=== PATIENT | female | born 1965 | race Caucasian/White ===

== ENCOUNTER 2020-01-30 08:31 | Outpatient (CLI) | payer BC, SELFPAY ==
--- NOTE | 2020-01-30 08:45 | US_ITS ---
WS: [id number] Pelvic ultrasound, 01/30/2020 Clinical Data: ABDOMINAL PAIN Comparison: None. Findings: The uterus has been removed. The left ovary measures 2.2 cm x 1.0 cm x 1.2 cm with no cysts or masses. The right ovary measures 2.3 cm x 1.4 cm x 1.8 cm with no cysts or masses. There is no fluid in the cul-de-sac. US/US pelvic with transvaginal Impression: 1. Absent uterus. 2. Negative bilateral ovaries.
== END 2020-01-30 08:32 | disposition home or self-care (01) ==
LOC: RAD 08:35
PROVIDERS: Family Provider Electrodiagnostic Medicine; Visit Provider Electrodiagnostic Medicine
DX: R10.9 Unspecified abdominal pain (principal); Z90.710 Acquired absence of both cervix and uterus
CPT/HCPCS: 76830; 76856

== ENCOUNTER 2020-04-02 13:17 | Outpatient (CLI) | payer BC, SELFPAY ==
--- NOTE | 2020-04-02 13:24 | CT_ITS ---
WS: [id number] CT ABDOMEN PELVIS TECHNIQUE: Contrast-enhanced CT of the abdomen and pelvis with coronal and sagittal reformatted image s. CLINICAL INFORMATION: CHRONIC DIARRHEA, ABDOMINAL PAIN COMPARISON: CT 3 25,006 DLP: 1147.[address] scans at [facility] use at least one of these dose optimization techniques: automat ed exposure control; mA and/or kV adjustment per patient size (includes targeted exams where dose is matched to clinical indication); or iterative reconstruction. FINDINGS: Prior postoperative changes cholecystectomy and hysterectomy. Diffuse fatty infiltration of the liver . Normal portal vein and splenic vein. Normal spleen. Normal GE junction. Calcified granuloma right l chicho base. Pancreas appears normal. Adrenal glands are normal. Normal renal parenchymal enhancement. M ild right renal cortical atrophy. No hydronephrosis. Normal caliber abdominal aorta. No abdominal lymphadenopathy. No pelvic or inguinal lymphadenopathy. Sigmoid diverticulosis. No evide nce of acute diverticulitis. No free fluid in the pelvis. Normal lumbar spine. CT/CT abdomen pelvis w con* [id number] IMPRESSION: 1. Mild diffuse fatty infiltration of the liver. Cholecystectomy clips. 2. Prior hysterectomy. 3. Sigmoid diverticulosis. No evidence of acute diverticulitis. No free fluid in the pelvis. 4. No evidence of small or large bowel obstruction. 5. Tiny incidental fat-containing umbilical hernia.
[2020-04-02] MEDS: iohexol 300 mg/mL 50 mL Btl PO (14:23)
[2020-04-02] MEDS: iohexol 300 mg/mL 100 mL Btl IV (15:29)
== END 2020-04-02 13:18 | disposition home or self-care (01) ==
LOC: RADWPI 13:22
PROVIDERS: Family Provider Electrodiagnostic Medicine; PCP Electrodiagnostic Medicine; Visit Provider Electrodiagnostic Medicine
DX: R10.9 Unspecified abdominal pain; Z80.0 Family history of malignant neoplasm of digestive organs; K52.9 Noninfective gastroenteritis and colitis, unspecified; K76.0 Fatty (change of) liver, not elsewhere classified; K57.30 Diverticulosis of large intestine without perforation or abscess without bleeding; K42.9 Umbilical hernia without obstruction or gangrene
CPT/HCPCS: 74177; Q9967

== ENCOUNTER 2022-07-21 09:36 | Outpatient (CLI) | payer MEDICAID, SELFPAY ==
--- NOTE | 2022-07-21 09:44 | MM_ITS ---
WS: [id number] VIEWS: MLO and CC views both breasts. 3D digital tomosynthesis is also included in this exam. Comparison made with prior exam of 08/31/2015, 12/10/2018,. Findings: There was no sign of mass, architectural distortion or suspicious calcification in either breast. Sc attered fibroglandular densities MM/[place] [id number] Impression: BI-RADS: 2-Benign FOLLOW-UP: 1 Year Follow-up This mammogram was also analyzed by the Computer Aided Detection System [employer].
== END 2022-07-21 09:37 | disposition home or self-care (01) ==
LOC: RAD 09:38
PROVIDERS: PCP Electrodiagnostic Medicine; Visit Provider Electrodiagnostic Medicine
DX: Z12.31 Encounter for screening mammogram for malignant neoplasm of breast (principal)
CPT/HCPCS: 77063; 77067

== ENCOUNTER → 2025-08-19 15:50 | Outpatient (BNVA) | payer OTHER, SELFPAY | PROVIDERS: PCP Electrodiagnostic Medicine; Visit Provider Nurse Practitioner | DX: S62.317A Displaced fracture of base of fifth metacarpal bone, left hand, initial encounter for closed fracture (principal); W19.XXXA Unspecified fall, initial encounter | CPT/HCPCS: 73130 ==

== ENCOUNTER 2025-08-19 17:31 | Outpatient (CLI) | payer OTHER, SELFPAY | END 2025-08-19 17:32 | disposition home or self-care (01) | LOC: SPT 17:31 | PROVIDERS: PCP Electrodiagnostic Medicine; Visit Provider Nurse Practitioner | DX: Z46.89 Encounter for fitting and adjustment of other specified devices (principal); S62.92XD Unspecified fracture of left hand, subsequent encounter for fracture with routine healing; X58.XXXD Exposure to other specified factors, subsequent encounter | CPT/HCPCS: L3984 ==

== ENCOUNTER → 2025-09-08 08:47 | Outpatient (BNVA) | payer OTHER, SELFPAY | PROVIDERS: PCP Electrodiagnostic Medicine; Visit Provider Nurse Practitioner | DX: S62.317D Displaced fracture of base of fifth metacarpal bone, left hand, subsequent encounter for fracture with routine healing (principal); X58.XXXD Exposure to other specified factors, subsequent encounter | CPT/HCPCS: 73130 ==

== ENCOUNTER → 2025-09-29 08:31 | Outpatient (BNVA) | payer OTHER, SELFPAY | PROVIDERS: PCP Electrodiagnostic Medicine; Visit Provider Nurse Practitioner | DX: S62.317D Displaced fracture of base of fifth metacarpal bone, left hand, subsequent encounter for fracture with routine healing (principal); X58.XXXD Exposure to other specified factors, subsequent encounter | CPT/HCPCS: 73130 ==

== ENCOUNTER → 2025-10-20 09:43 | Outpatient (BNVA) | payer OTHER, SELFPAY | PROVIDERS: PCP Electrodiagnostic Medicine; Visit Provider Nurse Practitioner | DX: S62.317D Displaced fracture of base of fifth metacarpal bone, left hand, subsequent encounter for fracture with routine healing (principal); X58.XXXD Exposure to other specified factors, subsequent encounter | CPT/HCPCS: 73130 ==